=== PATIENT | male | born 1960 | race Caucasian/White ===

== ENCOUNTER 2022-04-01 18:40 | Emergency (ER) | payer OTHER ==
--- NOTE | 2022-04-01 20:04 | ED Physician Documentation ---
PD HPI NECK PAIN - Stated complaint Stated Complaint: NECK PX - Chief complaint Chief Complaint: Neuro - History obtained from History obtained from: Patient - History of Present Illness Timing - onset: How many days ago (several) Timing - duration: Days Timing - details: Gradual onset (History of some back and neck pain in the past. However currently having left upper back to neck pain that is more significant than typical. He states that sharp pain with movement in particular sitting up. No numbness or tingling in the arms or legs.), Still present, Intermittant Location: Upper, Left Quality: Pain, Sharp. No: Throbbing, Dull Associated symptoms: No: Fever, Weakness, Numbness Improves with: Rest Worsened by: Movement (particularly with sitting up from lying, will get sharp pain in scapular to back of neck. No rash nor sores. No general headache.) Contributing factors: No: Lifting, Trauma Similar symptoms before: Diagnosis (has neck and back pain longer term and prescribed diclofenac orally and Voltaran topically along with methocarbamol. Denies regular opioids.) Recently seen: Not recently seen Review of Systems Constitutional: denies: Fever, Chills Eyes: denies: Loss of vision Nose: denies: Rhinorrhea / runny nose, Congestion Throat: denies: Sore throat Respiratory: denies: Cough GI: denies: Nausea, Vomiting Skin: denies: Rash, Lesions Neurologic: denies: Focal weakness, Numbness, Altered mental status, Headache (pain goes to occipital ridge area but not general headache.) PD PAST MEDICAL HISTORY - Past Medical History Cardiovascular: None Respiratory: None Endocrine/Autoimmune: None Psych: None Musculoskeletal: Chronic back pain - Present Medications Home Medications: Ambulatory Orders Medication Instructions Recorded Confirmed Diclofenac Sodium 50 mg PO BID 10 Days #20 tab 04/01/22 HYDROcod/ACETAM 5/325 [Revillo 5/325] 1 ea PO Q6H PRN #18 tablet 04/01/22 tiZANidine [Zanaflex] 4 mg PO Q8H PRN #25 tablet 04/01/22 - Allergies Allergies/Adverse Reactions: Allergies Allergy/AdvReac Type Severity Reaction Status Date / Time Penicillins Allergy Unknown Verified 04/01/22 19:02 Sulfa (Sulfonamide Allergy Unknown Verified 04/01/22 19:02 Antibiotics) - Living Situation Living Arrangement: reports: At home PD ED PE NORMAL - Vitals Vital signs reviewed: Yes - General General: Alert and oriented X 3, No acute distress (with holding head still. Winces with pain when turns or looks up head. ), Well developed/nourished - HEENT HEENT: PERRL, EOMI - Neck Neck: Supple, no meningeal sign, No bony TTP, No adenopathy, Other (Tender left mid trapezius muscle area with trigger point of tenderness left side about 2-3 inches lateral to lateral process. I injected that muscle area with Kenalog and Lidocaine using 25g needle 1.5 inches length. ) - Cardiac Cardiac: RRR, No murmur - Respiratory Respiratory: Clear bilaterally - Derm Derm: Normal color, Warm and dry, No rash - Neuro Neuro: Alert and oriented X 3, No motor deficit, No sensory deficit, Normal speech Results - Vitals Vitals: Vital Signs - 24 hr 04/01/22 04/01/22 19:02 20:58 Temperature 37.2 C Heart Rate 72 56 L Respiratory 19 16 Rate Blood Pressure 137/87 H 140/81 H O2 Saturation 98 98 Oxygen O2 Source Room air PD MEDICAL DECISION MAKING - ED course Complexity details: reviewed results, considered differential, d/w patient Departure - Departure Disposition: 01 Home, Self Care Clinical Impression: Neck pain, Neck muscle spasm Condition: Stable Record reviewed to determine appropriate education?: Yes Instructions: ED Neck Pain No Trauma Follow-Up: [facility] [Provider Group] Prescriptions: Diclofenac Sodium 50 mg PO BID 10 Days #20 tab HYDROcod/ACETAM 5/325 [Revillo 5/325] 1 ea PO Q6H PRN #18 tablet PRN Reason: Pain tiZANidine [Zanaflex] 4 mg PO Q8H PRN #25 tablet PRN Reason: Spasms Comments: I wrote a prescription for the diclofenac 50 mg twice daily. I wrote for 10 days worth and hopefully that is enough to last until your regular prescription comes in the mail. This does sound like muscle spasms going up along the muscle line as opposed to a pinched nerve which would radiate in a different distribution. It does sound like a muscle spasm component so we could try changing from your methocarbamol to tizanidine muscle relaxant and see if it works better. To that add Tylenol 4 times daily for pain or hydrocodone/acetaminophen as needed for worse pain. Follow-up with the [place] system if not improving well over the next several days or so. I transmitted your prescriptions to the [facility] pharmacy in [place]. I am prescribing a short course of narcotic pain medication for you. These are potentially dangerous and addictive medications that should be used carefully. These medications may constipate you. Take an facz-cyn-myqfzrk stool softener such as docusate twice daily with plenty of water while taking these medications. If you go 24 hours without a bowel movement, take [id number] MiraLAX, per package instructions. Do not drink or drive while taking these medications. If you received narcotic or sedating medications while in the emergency department do not drive for 24 hours. Store this medication in a safe, secure place and out of reach of children. It is a violation of federal law to give or sell this medication to another person or to use in a manner other than prescribed. The ED will not refill narcotic prescriptions, including prescriptions lost or stolen. You can dispose of unwanted medications at the [facility]'s office or at several pharmacies such as [facility]. Discharge Date/Time: 04/01/22 20:58
[2022-04-01] MEDS ORDERED: TRIAMCINOLONE 40 MG/ML VIAL MC STA (20:20)
[2022-04-01] MEDS ORDERED: KETOROLAC 30 MG/ML VIAL IM STA (20:20)
[2022-04-01] MEDS ORDERED: tiZANidine 4 MG TABLET PO STA (20:20)
[2022-04-01] MEDS ORDERED: HYDROcod/ACET 5/325 Prepack 4 PO STA (20:20)
[2022-04-01 21:00] VITALS: BP 140/81
== END 2022-04-01 20:58 | disposition home or self-care (01) ==
LOC: ED 18:40
DX: M54.2 Cervicalgia (principal); M62.838 Other muscle spasm
CPT/HCPCS: 20552; 99282; 99283; A9270

== ENCOUNTER 2022-04-08 16:18 | Emergency (ER) | payer OTHER ==
[2022-04-08] MEDS ORDERED: DEXAMETHASONE 10 MG/ML VIAL IM STA (20:13)
[2022-04-08] MEDS ORDERED: KETOROLAC 60 MG/2 ML VIAL IM STA (20:13)
[2022-04-08] MEDS ORDERED: methocarbamoL 500 MG TABLET PO STA (20:14)
[2022-04-08] MEDS ORDERED: oxyCODONE 5 MG TABLET PO STA (20:14)
--- NOTE | 2022-04-08 20:25 | ED Physician Documentation ---
History of Present Illness - Stated complaint Stated Complaint: NECK PX - Chief complaint Chief Complaint: General - History obtained from History obtained from: Patient - History of Present Illness Timing: Chronic Pain level max: 8 Pain level now: 8 - Additonal information Additional information: Patient is a 62-year-old male who presents to the emergency department complaining of neck spasm. This been ongoing for quite some time. He states that this has been an issue for several years, worsening over the past few months, he was seen here about a week ago and started on medications, symptoms improved but he is now out of the medications and is requesting new medication. No fevers. No chills. No trauma. No numbness or tingling. No loss of bowel or bladder control. No IV drug use. Worse with movement, better with rest. Review of Systems Constitutional: denies: Fever Respiratory: denies: Cough GI: denies: Vomiting, Diarrhea Skin: denies: Rash Musculoskeletal: denies: Back pain Neurologic: denies: Focal weakness, Numbness, Headache PD PAST MEDICAL HISTORY - Past Medical History Past Medical History: Yes Cardiovascular: None Respiratory: None Neuro: None Endocrine/Autoimmune: None GI: None : None HEENT: None Psych: None Musculoskeletal: Chronic back pain Derm: None - Past Surgical History Past Surgical History: No - Present Medications Home Medications: Ambulatory Orders Medication Instructions Recorded Confirmed tiZANidine [Zanaflex] 4 mg PO Q8H PRN #25 tablet 04/01/22 04/08/22 Aspirin Chewable [[place] 81 mg PO DAILY 04/08/22 04/08/22 Aspirin] Atorvastatin Calcium 40 mg PO QPM 04/08/22 04/08/22 Cyclobenzaprine [Flexeril] 10 mg PO TID PRN #20 tablet 04/08/[address] [Voltaren] 75 mg PO DAILY 04/08/22 04/08/22 Gabapentin [Gralise] 300 mg PO BID 04/08/22 04/08/22 HYDROcod/ACETAM 5/325 [Energy 5/325] 5 mg PO Q4HR 04/08/22 04/08/22 Ketorolac [Toradol] 10 mg PO Q6H PRN #30 tablet 04/08/22 Loratadine [Claritin] 10 mg PO DAILY 04/08/22 04/08/22 Multivitamin 1 tab PO DAILY 04/08/22 04/08/22 Omeprazole 40 mg PO DAILY 04/08/22 04/08/22 Oxycodone HCl [Roxicodone] 5 - 10 mg PO Q6H PRN #14 tablet 04/08/22 Tamsulosin HCl [Flomax] 1 cap PO DAILY 04/08/22 04/08/22 predniSONE [Deltasone] 10 mg PO [id number] #42 tab 04/08/22 - Allergies Allergies/Adverse Reactions: Allergies Allergy/AdvReac Type Severity Reaction Status Date / Time Penicillins Allergy Unknown Verified 04/08/22 16:32 Sulfa (Sulfonamide Allergy Unknown Verified 04/08/22 16:32 Antibiotics) - Social History Does the pt smoke?: No Smoking Status: Never smoker Does the pt drink ETOH?: No Does the pt have substance abuse?: No - Immunizations Immunizations are current?: No - POLST Patient has POLST: No PD ED PE NORMAL - Vitals Vital signs reviewed: Yes - General General: Alert and oriented X 3, No acute distress, Well developed/nourished - HEENT HEENT: PERRL, Ears normal, Moist mucous membranes, Pharynx benign - Neck Neck: Supple, no meningeal sign, No bony TTP (No midline tenderness to palpation or percussion. No step-off or deformity. 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 We will place on pain medication for home. We will trial him on a muscle relaxant as well as dexamethasone. We will trial a prednisone taper at home as well. No evidence of acute neurological deficit. No indication for emergent imaging. No evidence of epidural abscess. Patient counseled regarding signs and symptoms for which I believe and urgent re- evaluation would be necessary. Patient with good understanding of and agreement to plan and is comfortable going home at this time This document was made in part using voice recognition software. While efforts are made to proofread this document, sound alike and grammatical errors may occu r. Departure - Departure Disposition: Home, Self Care Clinical Impression: Neck muscle spasm Condition: Good Instructions: ED Spasm Neck No Injury Follow-Up: Provider,Other [Primary Care Provider] - Within 1 week Prescriptions: predniSONE [Deltasone] 10 mg PO [id number] #42 tab Cyclobenzaprine [Flexeril] 10 mg PO TID PRN #20 tablet PRN Reason: Spasms Oxycodone HCl [Roxicodone] 5 - 10 mg PO Q6H PRN #14 tablet PRN Reason: Pain Ketorolac [Toradol] 10 mg PO Q6H PRN #30 tablet PRN Reason: back pain Comments: Your prescriptions were sent to [facility] in [place]. We will try you on a different muscle relaxant and we will change use of Toradol from diclofenac. The Toradol seems to work better for you here. We will also place you on a steroid taper to see if this helps your symptoms that are consistent with an inflamed nerve. Please follow-up with your doctor for further care. I am prescribing a short course of narcotic pain medication for you. These are potentially dangerous and addictive medications that should be used carefully. These medications may constipate you. Take an ipqv-vch-uyyxlmz stool softener (docusate) twice daily with plenty of water while taking these medications. If you go 24 hours without a bowel movement, take [id number] miralax, per package instructions. Do not drink or drive while taking these medications. If you received narcotic or sedating medications while in the emergency department, do not drive for 24 hours. Store this medication in a safe, secure place and out of reach of children. It is a violation of federal law to give or sell this medication to another person or to use in a manner other than prescribed. The ED will not refill narcotic prescriptions, including prescriptions lost or stolen. To dispose of unwanted medications: 1. [facility] at [address] in [place] has a medication drop box. They accept prescription medications (in pill form) Tuesday through Tuesday 9:00 a.m. to 5:00 p.m. 2. The [facility] accepts prescription medications (in pill form only) for disposal year round. Call for more information. 3. Contact the [facility] for the next [facility] sponsored prescription drug collection event. , [phone], or [phone]; Discharge Date/Time: 04/08/22 20:52
[2022-04-08 20:54] VITALS: BP 164/88
== END 2022-04-08 20:52 | disposition home or self-care (01) ==
LOC: ED 16:18
DX: M62.838 Other muscle spasm (principal)
CPT/HCPCS: 96372; 99282; 99284; A9270